=== PATIENT | female | born 1970 | race African-American/Black ===

== ENCOUNTER 2023-03-08 00:42 | Emergency (ER) | payer OTHER ==
[2023-03-08 01:01] VITALS: TEMP 98.9; BMI 32.1
[2023-03-08 03:03] LABS: BASO % 0.3 % (0-2.0); EOS % 1.9 % (0-4.5); HEMATOCRIT 38.6 % (32.4-45.2); HEMOGLOBIN 12.5 GM/dL (10.7-15.3); LYMPH % 21.8 % (8-40); MCH 24.9 pg (25.7-33.7); MCHC 32.5 g/dl (32.0-36.0); MEAN CELL VOLUME 76.7 fl (80-96); MEAN PLT VOLUME 7.5 fl (7.5-11.1); MONO % 6.5 % (3.8-10.2); NEUT % 69.5 % (42.8-82.8); PLATELET COUNT 281 10^3/uL (134-434); RBC 5.03 M/mm3 (3.60-5.2); RDW 15.6 % (11.6-15.6); WHITE BLOOD COUNT 8.4 K/mm3 (4.0-10.0)
[2023-03-08 03:29] LABS: POTASSIUM 3.6 mmol/L (3.5-5.1)
[2023-03-08 03:30] LABS: CALCIUM 9.1 mg/dL (8.5-10.1)
[2023-03-08 03:32] LABS: ALBUMIN 3.2 g/dl (3.4-5.0)
[2023-03-08 03:35] LABS: CREATININE 0.8 mg/dL (0.55-1.3)
[2023-03-08 03:36] LABS: BILIRUBIN,TOTAL 0.2 mg/dL (0.2-1); TOT PROT 7.8 g/dl (6.4-8.2)
[2023-03-08 06:04] VITALS: BP 148/83; PULSE 81; RESP 16
== END 2023-03-08 07:01 | disposition home or self-care (01) ==
LOC: JER 00:42
DX: I10 Essential (primary) hypertension (principal); H92.01 Otalgia, right ear
CPT/HCPCS: 36415; 70450-TC; 70480-TC; 71045-TC-FY; 80053; 85025; 93005; 93010; 99285-25